=== PATIENT | male | born 1980 | race Caucasian/White ===

== ENCOUNTER 2020-01-07 10:02 | Day surgery (SDC) | payer OTHER ==
[2020-01-02 13:04] LABS: HEMATOCRIT 44.1 % (37.9-51.0); HEMOGLOBIN 15.3 g/dL (13.5-17.0); MEAN CORPUSCULAR HEMOGLOBIN 31.2 pg (27.0-33.4); MEAN CORPUSCULAR HGB CONC 34.7 g/dL (32.0-36.0); MEAN CORPUSCULAR VOLUME 90 fl (80-97); PLATELET COUNT 191 10^3/uL (150-450); RED CELL DISTRIBUTION WIDTH 12.6 % (11.5-14.0); WHITE BLOOD COUNT 5.8 10^3/uL (4.0-10.5)
[2020-01-02 13:24] LABS: ANION GAP 10 (5-19); BLOOD UREA NITROGEN 19 mg/dL (7-20); CALCIUM 10.4 mg/dL (8.4-10.2); CARBON DIOXIDE 28 mmol/L (22-30); CHLORIDE 101 mmol/L (98-107); GLUCOSE 102 mg/dL (75-110); POTASSIUM 4.9 mmol/L (3.6-5.0)
[2020-01-02 13:34] LABS: URINE AMPHETAMINES SCREEN NEGATIVE; URINE BARBITURATES SCREEN NEGATIVE; URINE BENZODIAZEPINES SCREEN NEGATIVE; URINE COCAINE SCREEN NEGATIVE; URINE MARIJUANA (THC) SCREEN NEGATIVE; URINE METHADONE SCREEN NEGATIVE; URINE PHENCYCLIDINE SCREEN NEGATIVE
[2020-01-02 13:35] LABS: ALCOHOL < 10 mg/dL (NONE DETECTED)
[~2020-01-07 10:02] MED LIST: CEFAZOLIN 2 GM/D5W RTU 2 GM/50 ML RTUPB IV ONE; CEFAZOLIN 2 GM/D5W RTU 2 GM/50 ML RTUPB IV PRN; LACTATED RINGERS 1000 ML IV PRN
[2020-01-07] MEDS ORDERED: BUPIVACAINE INJ/PF LIPOSOME/PF 266 MG/20 ML SDV ONE (10:31)
[2020-01-07] MEDS ORDERED: BACITRACIN INJ 50,000 UNIT VIAL ONE (10:31)
[2020-01-07] MEDS ORDERED: BUPIVACAINE HCL 0.5 % INJ/PF 30 ML SDV ONE (10:35)
[2020-01-07] MEDS ORDERED: SUCCINYLCHOLINE CHLORIDE INJ 200 MG/10 ML VIAL ONE (11:01)
[2020-01-07] MEDS ORDERED: MIDAZOLAM 2 MG/2 ML INJ ONE (14:49)
[2020-01-07] MEDS ORDERED: FENTANYL CITRATE INJ/PF 250 MCG/5 ML AMPULE ONE (14:49)
[2020-01-07] MEDS ORDERED: DEXAMETHASONE SOD PHOSPHATE INJ 4 MG/1 ML VIAL ONE (14:49)
[2020-01-07] MEDS ORDERED: ONDANSETRON HCL INJ/PF 4 MG/2 ML SDV ONE (14:49)
[2020-01-07] MEDS ORDERED: LIDOCAINE 2% INJ-PF (100 MG/5 ML) SYRINGE ONE (14:50)
[2020-01-07] MEDS ORDERED: PROPOFOL INJ 200 MG/20 ML VIAL IV ONE (14:50)
[2020-01-07] MEDS ORDERED: MEPERIDINE HCL/PF INJ 25 MG/1 ML DISP.SYRIN IV PRN (15:51)
[2020-01-07] MEDS ORDERED: MORPHINE SULFATE 10 MG/ML INJ IV PRN (15:51)
[2020-01-07] MEDS ORDERED: DIPHENHYDRAMINE HCL 50 MG/ML VIAL IV PRN (15:51)
[2020-01-07] MEDS ORDERED: OXYCODONE-ACETAMINOPHEN 5-325 MG TABLET PO PRN ×3 (15:51→18:34)
[2020-01-07] MEDS ORDERED: PROMETHAZINE HCL INJ 25 MG/1 ML VIAL IV PRN ×2 (15:51)
[2020-01-07] MEDS ORDERED: FENTANYL CITRATE INJ/PF 100 MCG/2 ML AMPUL IV PRN ×3 (15:51)
[2020-01-07] MEDS ORDERED: ONDANSETRON HCL INJ/PF 4 MG/2 ML SDV IV PRN ×2 (15:51→17:39)
[2020-01-07] MEDS ORDERED: VANCOMYCIN HCL INJ 1000 MG VIAL ONE (16:24)
--- NOTE | 2020-01-07 17:05 | Operative Report ---
Operative Report DATE OF SURGERY: 01/07/20 PREOPERATIVE DIAGNOSIS: Chronic back pain. Chronic radiculitis. Degenerative disc disease lumbar spine. Neuropathic pain POSTOPERATIVE DIAGNOSIS: Chronic back pain. Chronic radiculitis. Degenerative disc disease lumbar spine. Neuropathic pain. S/P Partial T10 laminectomy and placement of paddle lead and placement of generator and testing of paddle lead and generator/spinal cord stimulator OPERATION: Partial T10 laminectomy and placement of paddle lead and placement of generator and testing of paddle lead and generator/spinal cord stimulator SURGEON: PRERNA DEVLIN 1ST CUSTOMER ASSISTANT: KATH KUMAR ANESTHESIA: GA COMPLICATIONS: None ESTIMATED BLOOD LOSS: 100 cc INTRAOPERATIVE FINDINGS: Implant: Nevro 70 cm surpass C lead kit and omnia IPG kit NIP G 2500 and serial #[id number] lot #[id number] PROCEDURE: The patient is brought into the room and placed under anesthesia received 2 g of Ancef within 1 hour of cut time. Patient has SCDs and a warming blanket placed on her after being placed in the prone position on the Kike frame with the Ja 3sunson table. Under C-arm fluoroscopy in AP position the T10-T11 level is identified and marked in the midline is marked the patient requested to have the generator placed on the left side. After completion of the surgical timeout and after completion of prepping and draping, a midline incision was carried down through the skin measure approximately 2 inches dissection is carried down through the lumbodorsal fascia on both sides of spinous processes at T10 and T11. The T10 spinous processes marked with a Miki under C-arm fluoroscopy is verified. The spinous processes resected and a partial laminectomies performed ligamentum flavum was resected and the trial paddle lead is then passed up in the position is verified. After that the actual paddle lead is passed up and position is verified based on C-arm fluoroscopy. The wires are then sutured to the spinous process of T11 using 0 Ethibond suture. A pocket is created in the flank on the left side and small bleeders are coagulated using electrocautery. The tunneling device is used to pass the wires from the laminectomy site to the pocket. After irrigation of both wounds the actual generator is placed and tested and the leads are placed into it. Finding it work properly with good conduction the laminectomy site is reapproximated with 0 Vicryl and 2-0 Vicryl. And a running 3-0 Monocryl for subcuticular closure. The same is carried out with the pocket for the generator 2-0 Vicryl was used to reapproximate the subcu and running 3-0 subcuticular 3-0 Monocryl closure for the skin. The deep and superficial soft tissues are infiltrated with 1.3% Exparel 20 cc with 20 cc of 0.5% bupivacaine plain for both incisions. Please note this procedure could not of been done without the assistance of Vinod Kumar physician event sales assistant. Patient is brought to the supine position extubated and brought to the recovery room.
[2020-01-07] MEDS ORDERED: METHOCARBAMOL INJ/PF 1000 MG/10 ML SDV ONE (17:31)
[2020-01-07] MEDS ORDERED: PROMETHAZINE HCL 25 MG TABLET PO PRN (17:40)
[2020-01-07] MEDS ORDERED: DIAZEPAM 5 MG TABLET PO PRN (17:42)
[2020-01-07] MEDS ORDERED: METHOCARBAMOL 750 MG TABLET PO PRN (17:45)
[2020-01-07] MEDS ORDERED: OXYCODONE-ACETAMINOPHEN 5-325 MG TABLET ONE (17:52)
[2020-01-07] MEDS ORDERED: SENNOSIDES/DOCUSATE 8.6-50 MG 1 EACH TABLET PO SCH (18:00)
[2020-01-07] MEDS ORDERED: METHOCARBAMOL INJ/PF 1000 MG/10 ML SDV IV ONE (18:00)
[2020-01-07] MEDS ORDERED: PROMETHAZINE HCL INJ 25 MG/1 ML VIAL IM PRN (18:21)
[2020-01-07] MEDS ORDERED: ACETAMINOPHEN 325 MG TABLET PO PRN (18:26)
[2020-01-07] MEDS ORDERED: HYDROCODONE/ACETAMINOPHEN 5-325 MG TABLET PO PRN (18:29)
[2020-01-07 20:12] VITALS: BP 134/89
--- NOTE | 2020-01-08 08:47 | RADIOLOGY REPORT (SQ) ---
EXAM DESCRIPTION: T SPINE AP/LAT; NO CHG FLUORO IMAGES COMPLETED DATE/TIME: 01/07/2020 5:27 pm; 01/07/2020 5:26 pm REASON FOR STUDY: SPINAL STIMULATOR M51.36 OTHER INTERVERTEBRAL DISC DEGENERATION, LUMBAR REGION M4 6.96 UNSPECIFIED INFLAMMATORY SPONDYLOPATHY, LUMBAR REGION M54.5 LOW BACK PAIN COMPARISON: None. FLUOROSCOPY TIME: 0.3 minutes. 3 images saved to PACS. TECHNIQUE: Intra-operative images acquired during surgical procedure to evaluate progress. NUMBER OF IMAGES: 3 images. LIMITATIONS: None. FINDINGS: Images of the spine acquired during stimulator placement. IMPRESSION: IMAGE(S) OBTAINED DURING PROCEDURE. COMMENT: Quality ID [id number]: Final reports for procedures using fluoroscopy that document radiation exp osure indices, or exposure time and number of fluorographic images (if radiation exposure indices are not available) Please consult full operative report of the attending physician for description of the procedure. TECHNICAL DOCUMENTATION: JOB ID: [id number] 2010 [employer]- All Rights Reserved Reading location - IP/workstation name: [email or web address]
--- NOTE | 2020-01-08 08:47 | RADIOLOGY REPORT (SQ) ---
EXAM DESCRIPTION: T SPINE AP/LAT; NO CHG FLUORO IMAGES COMPLETED DATE/TIME: 01/07/2020 5:27 pm; 01/07/2020 5:26 pm REASON FOR STUDY: SPINAL STIMULATOR M51.36 OTHER INTERVERTEBRAL DISC DEGENERATION, LUMBAR REGION M4 6.96 UNSPECIFIED INFLAMMATORY SPONDYLOPATHY, LUMBAR REGION M54.5 LOW BACK PAIN COMPARISON: None. FLUOROSCOPY TIME: 0.3 minutes. 3 images saved to PACS. TECHNIQUE: Intra-operative images acquired during surgical procedure to evaluate progress. NUMBER OF IMAGES: 3 images. LIMITATIONS: None. FINDINGS: Images of the spine acquired during stimulator placement. IMPRESSION: IMAGE(S) OBTAINED DURING PROCEDURE. COMMENT: Quality ID [id number]: Final reports for procedures using fluoroscopy that document radiation exp osure indices, or exposure time and number of fluorographic images (if radiation exposure indices are not available) Please consult full operative report of the attending physician for description of the procedure. TECHNICAL DOCUMENTATION: JOB ID: [id number] 2010 [employer]- All Rights Reserved Reading location - IP/workstation name: [email or web address]
== END 2020-01-07 19:30 | disposition home or self-care (01) ==
LOC: OROUT 10:02
PROVIDERS: ATTEND Orthopaedic Surgery
DX: M51.36 Other intervertebral disc degeneration, lumbar region (principal); M51.16 Intervertebral disc disorders with radiculopathy, lumbar region; M48.061 Spinal stenosis, lumbar region without neurogenic claudication; G89.4 Chronic pain syndrome; Z03.818 Encounter for observation for suspected exposure to other biological agents ruled out; Z98.890 Other specified postprocedural states
CPT/HCPCS: 63655; 63685; C1778; 72070; 80048; 80307; 85027; 87070; 87635; C9290; C9803; J0330; J0690; J1100; J2001; J2250; J2405; J2704; J2800; J3010; J3370; J3490